=== PATIENT | female | born 1975 | race Caucasian/White ===

== ENCOUNTER → 2019-08-23 | Day surgery (SDC) | payer BC ==
[2019-08-22 09:11] LABS: BASOPHILS % 0.5 % (0.0-1.0); EOSINOPHILS # (AUTO) 0.1 (0.0-0.4); HEMATOCRIT 40.6 % (34.2-44.1); HEMOGLOBIN 13.4 g/dL (12.0-16.0); LYMPHOCYTES # (AUTO) 1.5 (1.0-3.2); LYMPHOCYTES % 25.2 % (18.0-39.1); MEAN CORPUSCULAR HEMOGLOBIN 30.3 pg (28-32); MEAN CORPUSCULAR VOLUME 91.9 fL (81-99); MONOCYTES # (AUTO) 0.7 (0.2-0.8); MONOCYTES % 11.6 % (4.4-11.3); NEUTROPHILS # (AUTO) 3.7 (2.1-6.9); NEUTROPHILS % 60.5 % (38.7-80.0); PLATELET COUNT 365 x10e3/uL (140-360); RED BLOOD COUNT 4.42 x10e6/uL (3.6-5.1); RED CELL DISTRIBUTION WIDTH 12.5 % (11.7-14.4)
[2019-08-22 09:33] LABS: ANION GAP 11.2 mmol/L (8-16); BLOOD UREA NITROGEN 12 mg/dL (7-26); BUN/CREATININE RATIO 17 (6-25); CALCIUM 9.4 mg/dL (8.4-10.2); CARBON DIOXIDE 27 mmol/L (22-29); CHLORIDE 103 mmol/L (98-107); EST GLOMERULAR FILTRATION RATE > 60 ML/MIN (60-); GLUCOSE 104 mg/dL (74-118); POTASSIUM 4.2 mmol/L (3.5-5.1); SODIUM 137 mmol/L (136-145)
[~2019-08-23] MED LIST: BUPIVACAINE 0.25%/EPI 30ML SDV INJ ONE; DEXAMETHASONE SOD PHOS INJ 4 MG/ML VIAL ONE; DYMISTA NASAL S23 GM; FENTANYL CITRATE/PF 100MCG/2 ML INJ ONE; FISH OIL 1,0001 EAC2; KETOROLAC TROMETHAMINE 30 MG/ML VIAL ONE; LIDOCAINE HCL 2% LOCAL INJ 5 ML SDV VIAL INJ ONE; MIDAZOLAM HCL 2 MG/2 ML VIAL ONE; MULTI-VITAMIN1 EACH; ONDANSETRON HCL INJ 2MG/ML 2ML 2 MG/ML VIAL ONE; PRAVASTATIN SOD40 MG; PROPOFOL IV EMULSION 10 MG/ML 20 ML VIAL ONE; SEVOFLURANE INHAL SOLN 250 ML PEN BTL ONE
[2019-08-23 13:55] VITALS: BP 113/78
--- NOTE | 2019-08-23 19:52 | Operative Report ---
DATE OF PROCEDURE: 08/23/2019 SURGEON: Charlie Maldonado MD POSTOPERATIVE DIAGNOSIS: Mass of the left supraclavicular region. POSTOPERATIVE DIAGNOSIS: Mass of the left supraclavicular region. OPERATION PERFORMED: Excision of mass of the left supraclavicular region. ANESTHESIA: General. COMPLICATIONS: None. ESTIMATED BLOOD LOSS: Minimal. DESCRIPTION OF PROCEDURE: With the patient lying in bed in the supine position, under good general anesthesia, the left chest and neck were prepped with Betadine solution and draped in the usual manner. The area overlying the mass in the supraclavicular region on the left side was then infiltrated with 0.25% Marcaine with epinephrine. An incision was made, carried down through the subcutaneous tissue and immediately a multilobulated lipomatous mass was encountered, which was from all the surrounding structures and totally and completely removed. Hemostasis was ascertained. The subcutaneous tissue was then reapproximated with 3-0 Vicryl and the skin was closed with subcuticular 5-0 Vicryl. Benzoin, Steri-Strips, and dressings were applied. The sponge, lap, and needle counts were correct. The patient tolerated the procedure well and returned to the recovery room in stable condition. MD STACEY Hassan/RAGHAVENDRA /[id number]
== END | disposition home or self-care (01) ==
LOC: OR 09:40
PROVIDERS: ATTEND Surgery
DX: R22.32 Localized swelling, mass and lump, left upper limb (principal); F17.290 Nicotine dependence, other tobacco product, uncomplicated; Z01.810 Encounter for preprocedural cardiovascular examination; Z01.812 Encounter for preprocedural laboratory examination
CPT/HCPCS: 23071; 36415; 80048; 85025; 88304; 93005; J1100; J1885; J2001; J2250; J2405; J2704; J3010